=== PATIENT | male | born 1985 | race Caucasian/White ===

== ENCOUNTER 2022-07-28 11:02 | Inpatient (IN) | payer BC, OTHER ==
[2022-07-28] MEDS ORDERED: KETOROLAC TROMETHAMINE 15 MG/ML VIAL IVPUSH ONE (11:39)
[2022-07-28] MEDS ORDERED: ACETAMINOPHEN 1000 MG/100 ML BAG IVPB ONE (11:40)
[2022-07-28] MEDS ORDERED: SODIUM CHLORIDE 0.9% 500 ML INFUS.BAG IV ONE (11:40)
[2022-07-28] MEDS ORDERED: PANTOPRAZOLE SODIUM 40 MG VIAL IVPUSH ONE (11:40)
[2022-07-28] MEDS ORDERED: PANTOPRAZOLE SODIUM 40 MG VIAL ONE (12:11)
[2022-07-28] MEDS ORDERED: KETOROLAC TROMETHAMINE 15 MG/ML VIAL ONE (12:11)
[2022-07-28] MEDS ORDERED: ACETAMINOPHEN INJECTION 100 ML IVPB ONE ×2 (12:11→17:05)
[2022-07-28 12:45] LABS: BASO % 0.2 % (0-2.0); EOS % 0.1 % (0-4.5); HEMATOCRIT 45.1 % (35.4-49); LYMPH % 4.9 % (8-40); MCH 28.7 pg (25.7-33.7); MCHC 33.3 g/dl (32.0-35.9); MEAN CELL VOLUME 86.1 fl (80-96); MEAN PLT VOLUME 8.1 fl (7.5-11.1); MONO % 4.9 % (3.8-10.2); NEUT % 89.9 % (42.8-82.8); PLATELET COUNT 213 10^3/uL (134-434); RBC 5.24 M/mm3 (4.00-5.60); RDW 13.5 % (11.9-15.9)
[2022-07-28 12:49] LABS: EPI CELLS 7 /uL (0-25.1); HYALINE CASTS 4 /uL (0-3.1); PH,URINE 5.5 (5.0-8.0); URINE APPEARANCE CLEAR; URINE BACTERIA 6 /uL (0-1359); URINE BILIRUBIN 1+ (NEGATIVE); URINE COLOR ORANGE; URINE GLUCOSE (UA) NEGATIVE (NEGATIVE); URINE KETONE TRACE (NEGATIVE); URINE LEUK ESTERASE TRACE (NEGATIVE); URINE NITRITE NEGATIVE (NEGATIVE); URINE PROTEIN 1+ (NEGATIVE); URINE RBC 16 /uL (0-23.9); URINE WBC 13 /uL (0-25.8)
[2022-07-28 12:53] LABS: INR 1.46 (0.83-1.09); PROTHROMBIN TIME (PATIENT) 16.8 SEC (9.7-13.0)
[2022-07-28 13:09] LABS: CALCIUM 9.1 mg/dL (8.5-10.1)
[2022-07-28 13:10] LABS: ALBUMIN 3.6 g/dl (3.4-5.0); BLOOD UREA NITROGEN 11.5 mg/dL (7-18)
[2022-07-28 13:13] LABS: CREATININE 1.1 mg/dL (0.55-1.3)
[2022-07-28 13:14] LABS: BILIRUBIN,TOTAL 1.5 mg/dL (0.2-1); TOT PROT 7.9 g/dl (6.4-8.2)
[2022-07-28] MEDS ORDERED: PIPERACILLIN/TAZOB 4.5 GM 4.5 GM in DEXTROSE 5%-WATER 100 ML IVPB ONE (14:40)
[2022-07-28] MEDS ORDERED: PIPERACILLIN/TAZOB 4.5 GM 4.5 GM/100 ML BAG IVPB ONE (14:48)
[2022-07-28] MEDS ORDERED: DOCUSATE NA 100 MG/10 ML UNIT-DOSE CUPS PO PRN (15:40)
[2022-07-28] MEDS: ACETAMINOPHEN 1000 MG/100 ML BAG IVPB SCH ×2 (17:07→21:20)
[2022-07-28 21:12] LABS: BASO % 0.2 % (0-2.0); EOS % 0.1 % (0-4.5); HEMATOCRIT 44.3 % (35.4-49); HEMOGLOBIN 14.9 GM/dL (11.7-16.9); LYMPH % 8.7 % (8-40); MCH 29.3 pg (25.7-33.7); MCHC 33.5 g/dl (32.0-35.9); MEAN CELL VOLUME 87.3 fl (80-96); MEAN PLT VOLUME 8.7 fl (7.5-11.1); MONO % 3.3 % (3.8-10.2); NEUT % 87.7 % (42.8-82.8); PLATELET COUNT 180 10^3/uL (134-434); RBC 5.08 M/mm3 (4.00-5.60); RDW 13.8 % (11.9-15.9); WHITE BLOOD COUNT 14.8 K/mm3 (4.0-10.0)
[2022-07-28 21:18] LABS: BLOOD UREA NITROGEN 10.3 mg/dL (7-18)
[2022-07-28] MEDS: KETOROLAC TROMETHAMINE 30 MG/1 ML VIAL IVPUSH PRN (21:26)
[2022-07-28 23:24] LABS: ERYTHROCYTE SEDIMENTATION RATE 23 mm/hr (0-10)
[2022-07-29 02:22] VITALS: BMI 26.6
[2022-07-29] MEDS: KETOROLAC TROMETHAMINE 30 MG/1 ML VIAL IVPUSH PRN ×2 (03:33→09:39)
[2022-07-29] MEDS: ACETAMINOPHEN 1000 MG/100 ML BAG IVPB SCH ×4 (03:39→22:05)
[2022-07-29] MEDS: DEXTROSE 5%-NORMAL SALINE 1,000 ML IV SCH ×2 (05:36→22:49)
[2022-07-29 09:59] LABS: HEMOGLOBIN 14.2 GM/dL (11.7-16.9); MCH 29.4 pg (25.7-33.7); MCHC 33.8 g/dl (32.0-35.9); MEAN CELL VOLUME 86.7 fl (80-96); MEAN PLT VOLUME 8.5 fl (7.5-11.1); PLATELET COUNT 168 10^3/uL (134-434); RBC 4.85 M/mm3 (4.00-5.60); RDW 13.6 % (11.9-15.9); WHITE BLOOD COUNT 16.9 K/mm3 (4.0-10.0)
[2022-07-29] MEDS ORDERED: PIPERACILLIN/TAZOB 3.375 GM 3.375 GM in DEXTROSE 5%-WATER - 50 ML IVPB SCH (10:00)
[2022-07-29 10:11] LABS: ALBUMIN 3.2 g/dl (3.4-5.0)
[2022-07-29 10:12] LABS: BLOOD UREA NITROGEN 11.4 mg/dL (7-18)
[2022-07-29 10:15] LABS: CREATININE 1.1 mg/dL (0.55-1.3)
[2022-07-29 10:16] LABS: BILIRUBIN,TOTAL 1.1 mg/dL (0.2-1); TOT PROT 7.1 g/dl (6.4-8.2)
[2022-07-29] MEDS: PANTOPRAZOLE SODIUM 40 MG VIAL IVPUSH SCH (10:36)
[2022-07-29] MEDS: PIPERACILLIN/TAZOB 3.375 GM 3.375 GM in DEXTROSE 5%-WATER - 50 ML IVPB SCH (17:40)
[2022-07-29] MEDS ORDERED: ACETAMINOPHEN 325 MG TABLET (FP) PO ONE (18:06)
[2022-07-30] MEDS: ACETAMINOPHEN 325 MG TABLET (FP) PO PRN ×3 (01:12→15:18)
[2022-07-30] MEDS: PIPERACILLIN/TAZOB 3.375 GM 3.375 GM in DEXTROSE 5%-WATER - 50 ML IVPB SCH ×3 (03:21→18:22)
[2022-07-30] MEDS: DEXTROSE 5%-NORMAL SALINE 1,000 ML IV SCH (05:59)
[2022-07-30] MEDS: PANTOPRAZOLE SODIUM 40 MG VIAL IVPUSH SCH (10:41)
[2022-07-30 12:48] LABS: BASO % 0.2 % (0-2.0); EOS % 0.2 % (0-4.5); HEMATOCRIT 39.6 % (35.4-49); HEMOGLOBIN 13.3 GM/dL (11.7-16.9); LYMPH % 4.5 % (8-40); MCH 29.5 pg (25.7-33.7); MCHC 33.7 g/dl (32.0-35.9); MEAN CELL VOLUME 87.5 fl (80-96); MEAN PLT VOLUME 8.3 fl (7.5-11.1); MONO % 5.2 % (3.8-10.2); NEUT % 89.9 % (42.8-82.8); PLATELET COUNT 219 10^3/uL (134-434); RBC 4.52 M/mm3 (4.00-5.60); RDW 13.7 % (11.9-15.9)
[2022-07-30 13:09] LABS: CALCIUM 8.7 mg/dL (8.5-10.1)
[2022-07-30 13:13] LABS: CREATININE 1.1 mg/dL (0.55-1.3)
[2022-07-31] MEDS: DEXTROSE 5%-NORMAL SALINE 1,000 ML IV SCH ×2 (01:00→09:51)
[2022-07-31] MEDS: PIPERACILLIN/TAZOB 3.375 GM 3.375 GM in DEXTROSE 5%-WATER - 50 ML IVPB SCH ×3 (02:55→17:31)
[2022-07-31] MEDS: PANTOPRAZOLE SODIUM 40 MG VIAL IVPUSH SCH (09:35)
[2022-07-31 11:56] LABS: HEMATOCRIT 40.3 % (35.4-49); HEMOGLOBIN 13.4 GM/dL (11.7-16.9); MCH 28.7 pg (25.7-33.7); MCHC 33.2 g/dl (32.0-35.9); MEAN CELL VOLUME 86.5 fl (80-96); MEAN PLT VOLUME 7.9 fl (7.5-11.1); PLATELET COUNT 255 10^3/uL (134-434); RBC 4.66 M/mm3 (4.00-5.60); RDW 13.9 % (11.9-15.9); WHITE BLOOD COUNT 13.7 K/mm3 (4.0-10.0)
[2022-07-31 12:12] LABS: CALCIUM 8.8 mg/dL (8.5-10.1)
[2022-07-31 12:13] LABS: ALBUMIN 2.6 g/dl (3.4-5.0); BLOOD UREA NITROGEN 11.5 mg/dL (7-18); MAGNESIUM 2.3 mg/dL (1.8-2.4)
[2022-07-31 12:16] LABS: CREATININE 1.1 mg/dL (0.55-1.3)
[2022-07-31 12:17] LABS: TOT PROT 6.8 g/dl (6.4-8.2)
[2022-07-31] MEDS ORDERED: DEXTROSE 5%-NORMAL SALINE 995 ML with POTASSIUM CHLORIDE 10 MEQ IV SCH (14:29)
[2022-07-31] MEDS ORDERED: POTASSIUM CHLORIDE 10 MEQ in DEXTROSE 5%-NORMAL SALINE 995 ML IV SCH (15:40)
[2022-07-31] MEDS: D5-1/2NS+20 MEQ KCL - 20 MEQ/1,000 ML INFUS.BAG IV SCH (17:30)
[2022-07-31] MEDS: KCL 10 MEQ IVPB 10 MEQ/100 ML INFUS.BAG IVPB SCH ×3 (20:32→23:25)
[2022-08-01] MEDS: PIPERACILLIN/TAZOB 3.375 GM 3.375 GM in DEXTROSE 5%-WATER - 50 ML IVPB SCH ×3 (03:05→17:31)
[2022-08-01] MEDS: PANTOPRAZOLE SODIUM 40 MG VIAL IVPUSH SCH (09:16)
[2022-08-01] MEDS: D5-1/2NS+20 MEQ KCL - 20 MEQ/1,000 ML INFUS.BAG IV SCH ×3 (09:17→21:37)
[2022-08-01 09:30] LABS: HEMOGLOBIN 13.3 GM/dL (11.7-16.9); MCH 28.4 pg (25.7-33.7); MCHC 32.6 g/dl (32.0-35.9); MEAN CELL VOLUME 87.4 fl (80-96); MEAN PLT VOLUME 7.9 fl (7.5-11.1); PLATELET COUNT 271 10^3/uL (134-434); RBC 4.69 M/mm3 (4.00-5.60); RDW 13.9 % (11.9-15.9); WHITE BLOOD COUNT 11.5 K/mm3 (4.0-10.0)
[2022-08-01 10:02] LABS: ALBUMIN 2.4 g/dl (3.4-5.0); BLOOD UREA NITROGEN 11.7 mg/dL (7-18); CALCIUM 8.6 mg/dL (8.5-10.1); MAGNESIUM 2.3 mg/dL (1.8-2.4)
[2022-08-01 10:05] LABS: PHOSPHOROUS 3.1 mg/dL (2.5-4.9)
[2022-08-01 10:07] LABS: BILIRUBIN,TOTAL 0.6 mg/dL (0.2-1); TOT PROT 6.5 g/dl (6.4-8.2)
[2022-08-01 10:15] LABS: ERYTHROCYTE SEDIMENTATION RATE 78 mm/hr (0-10)
[2022-08-01] MEDS ORDERED: ACETAMINOPHEN 1000 MG/100 ML BAG IVPB ONE (21:24)
[2022-08-01] MEDS: ACETAMINOPHEN 325 MG TABLET (FP) PO PRN (23:02)
[2022-08-02] MEDS: PIPERACILLIN/TAZOB 3.375 GM 3.375 GM in DEXTROSE 5%-WATER - 50 ML IVPB SCH ×2 (01:33→10:09)
[2022-08-02 09:51] LABS: BASO % 0.3 % (0-2.0); EOS % 3.3 % (0-4.5); HEMATOCRIT 39.7 % (35.4-49); HEMOGLOBIN 13.5 GM/dL (11.7-16.9); LYMPH % 8.2 % (8-40); MCH 29.6 pg (25.7-33.7); MCHC 34.1 g/dl (32.0-35.9); MEAN CELL VOLUME 86.7 fl (80-96); MEAN PLT VOLUME 7.3 fl (7.5-11.1); MONO % 6.8 % (3.8-10.2); NEUT % 81.4 % (42.8-82.8); PLATELET COUNT 307 10^3/uL (134-434); RBC 4.57 M/mm3 (4.00-5.60); RDW 14.3 % (11.9-15.9); WHITE BLOOD COUNT 11.7 K/mm3 (4.0-10.0)
[2022-08-02] MEDS: PANTOPRAZOLE SODIUM 40 MG VIAL IVPUSH SCH (10:09)
[2022-08-02 10:13] LABS: CALCIUM 8.7 mg/dL (8.5-10.1)
[2022-08-02 10:14] LABS: ALBUMIN 2.4 g/dl (3.4-5.0); BLOOD UREA NITROGEN 11.2 mg/dL (7-18)
[2022-08-02 10:16] LABS: BILIRUBIN,TOTAL 0.7 mg/dL (0.2-1); CREATININE 0.9 mg/dL (0.55-1.3)
[2022-08-02 10:17] LABS: TOT PROT 6.7 g/dl (6.4-8.2)
[2022-08-02] MEDS: D5-1/2NS+20 MEQ KCL - 20 MEQ/1,000 ML INFUS.BAG IV SCH ×2 (13:57→18:44)
[2022-08-02] MEDS: ACETAMINOPHEN 325 MG TABLET (FP) PO PRN (14:03)
[2022-08-02] MEDS: PIPERACILLIN/TAZOB 4.5 GM 4.5 GM in DEXTROSE 5%-WATER 100 ML IVPB SCH (17:23)
[2022-08-03] MEDS: D5-1/2NS+20 MEQ KCL - 20 MEQ/1,000 ML INFUS.BAG IV SCH ×2 (01:37→18:03)
[2022-08-03] MEDS: PIPERACILLIN/TAZOB 4.5 GM 4.5 GM in DEXTROSE 5%-WATER 100 ML IVPB SCH ×3 (01:38→18:04)
[2022-08-03] MEDS: PANTOPRAZOLE SODIUM 40 MG VIAL IVPUSH SCH (10:57)
[2022-08-03 11:16] LABS: BASO % 0.3 % (0-2.0); EOS % 2.4 % (0-4.5); HEMOGLOBIN 13.2 GM/dL (11.7-16.9); LYMPH % 6.5 % (8-40); MCH 29.3 pg (25.7-33.7); MCHC 33.9 g/dl (32.0-35.9); MEAN CELL VOLUME 86.3 fl (80-96); MEAN PLT VOLUME 7.1 fl (7.5-11.1); MONO % 6.5 % (3.8-10.2); NEUT % 84.3 % (42.8-82.8); PLATELET COUNT 332 10^3/uL (134-434); RBC 4.52 M/mm3 (4.00-5.60); RDW 13.9 % (11.9-15.9); WHITE BLOOD COUNT 12.7 K/mm3 (4.0-10.0)
[2022-08-03 11:45] LABS: CALCIUM 8.3 mg/dL (8.5-10.1)
[2022-08-03 11:46] LABS: ALBUMIN 2.4 g/dl (3.4-5.0); BLOOD UREA NITROGEN 8.1 mg/dL (7-18)
[2022-08-03 11:50] LABS: BILIRUBIN,TOTAL 0.9 mg/dL (0.2-1); CREATININE 0.8 mg/dL (0.55-1.3)
[2022-08-03 11:51] LABS: TOT PROT 6.4 g/dl (6.4-8.2)
[2022-08-03 11:55] LABS: ERYTHROCYTE SEDIMENTATION RATE 62 mm/hr (0-10)
[2022-08-04] MEDS: PIPERACILLIN/TAZOB 4.5 GM 4.5 GM in DEXTROSE 5%-WATER 100 ML IVPB SCH ×3 (00:59→17:20)
[2022-08-04] MEDS: PANTOPRAZOLE SODIUM 40 MG VIAL IVPUSH SCH (11:08)
[2022-08-04 17:37] LABS: BASO % 0.3 % (0-2.0); EOS % 2.7 % (0-4.5); HEMATOCRIT 39.1 % (35.4-49); HEMOGLOBIN 12.8 GM/dL (11.7-16.9); MCH 28.2 pg (25.7-33.7); MCHC 32.8 g/dl (32.0-35.9); MEAN CELL VOLUME 86.1 fl (80-96); MEAN PLT VOLUME 7.1 fl (7.5-11.1); MONO % 6.7 % (3.8-10.2); NEUT % 83.3 % (42.8-82.8); PLATELET COUNT 396 10^3/uL (134-434); RBC 4.54 M/mm3 (4.00-5.60); RDW 13.7 % (11.9-15.9); WHITE BLOOD COUNT 11.5 K/mm3 (4.0-10.0)
[2022-08-05] MEDS: PIPERACILLIN/TAZOB 4.5 GM 4.5 GM in DEXTROSE 5%-WATER 100 ML IVPB SCH ×3 (01:06→17:57)
[2022-08-05 09:25] LABS: HEMATOCRIT 39.1 % (35.4-49); HEMOGLOBIN 13.2 GM/dL (11.7-16.9); MCH 29.3 pg (25.7-33.7); MCHC 33.7 g/dl (32.0-35.9); MEAN CELL VOLUME 86.9 fl (80-96); MEAN PLT VOLUME 6.7 fl (7.5-11.1); PLATELET COUNT 426 10^3/uL (134-434); WHITE BLOOD COUNT 14.1 K/mm3 (4.0-10.0)
[2022-08-05 09:54] LABS: CALCIUM 8.6 mg/dL (8.5-10.1)
[2022-08-05 09:55] LABS: ALBUMIN 2.5 g/dl (3.4-5.0); BLOOD UREA NITROGEN 8.5 mg/dL (7-18)
[2022-08-05 09:57] LABS: BILIRUBIN,TOTAL 0.5 mg/dL (0.2-1)
[2022-08-05 09:58] LABS: CREATININE 0.9 mg/dL (0.55-1.3)
[2022-08-05 10:00] LABS: TOT PROT 6.9 g/dl (6.4-8.2)
[2022-08-05] MEDS: PANTOPRAZOLE SODIUM 40 MG VIAL IVPUSH SCH (11:58)
[2022-08-05] MEDS: DEXTROSE 5%-0.45% SALINE 995 ML with POTASSIUM CHLORIDE 10 MEQ IV SCH (15:25)
[2022-08-06] MEDS: PIPERACILLIN/TAZOB 4.5 GM 4.5 GM in DEXTROSE 5%-WATER 100 ML IVPB SCH ×2 (01:42→13:45)
[2022-08-06] MEDS ORDERED: MIDAZOLAM HCL 2 MG/2 ML SINGLE DOSE VIAL ONE (08:49)
[2022-08-06] MEDS ORDERED: SODIUM CHLORIDE 500 ML IV ONE (09:55)
[2022-08-06] MEDS ORDERED: MIDAZOLAM HCL 2 MG/2 ML SINGLE DOSE VIAL IVPUSH ONE ×2 (09:56→10:11)
[2022-08-06 12:01] LABS: BASO % 0.2 % (0-2.0); EOS % 1.5 % (0-4.5); HEMATOCRIT 38.3 % (35.4-49); HEMOGLOBIN 12.8 GM/dL (11.7-16.9); LYMPH % 6.2 % (8-40); MCH 28.6 pg (25.7-33.7); MCHC 33.3 g/dl (32.0-35.9); MEAN CELL VOLUME 85.8 fl (80-96); MEAN PLT VOLUME 7.2 fl (7.5-11.1); MONO % 4.7 % (3.8-10.2); NEUT % 87.4 % (42.8-82.8); PLATELET COUNT 466 10^3/uL (134-434); RBC 4.46 M/mm3 (4.00-5.60); RDW 13.9 % (11.9-15.9); WHITE BLOOD COUNT 15.8 K/mm3 (4.0-10.0)
[2022-08-06 12:18] LABS: CALCIUM 8.2 mg/dL (8.5-10.1)
[2022-08-06 12:19] LABS: ALBUMIN 2.4 g/dl (3.4-5.0); BLOOD UREA NITROGEN 8.1 mg/dL (7-18)
[2022-08-06 12:21] LABS: CREATININE 0.8 mg/dL (0.55-1.3)
[2022-08-06 12:23] LABS: BILIRUBIN,TOTAL 0.6 mg/dL (0.2-1); TOT PROT 6.9 g/dl (6.4-8.2)
[2022-08-06] MEDS: PANTOPRAZOLE SODIUM 40 MG VIAL IVPUSH SCH (13:46)
[2022-08-06 15:38] VITALS: RESP 18
[2022-08-06] MEDS: DEXTROSE 5%-0.45% SALINE 995 ML with POTASSIUM CHLORIDE 10 MEQ IV SCH (16:39)
[2022-08-06] MEDS: AMOX TR/POT CLAV 500MG/125MG TABLETS (FP) PO SCH (17:49)
[2022-08-06] MEDS ORDERED: traMADol HCL 50 MG TABLET PO PRN (20:05)
[2022-08-06] MEDS: metroNIDAZOLE 250 MG TABLET PO SCH (21:19)
[2022-08-07] MEDS: metroNIDAZOLE 250 MG TABLET PO SCH ×3 (05:41→21:05)
[2022-08-07] MEDS: AMOX TR/POT CLAV 500MG/125MG TABLETS (FP) PO SCH ×2 (10:14→16:46)
[2022-08-07 12:31] LABS: BASO % 0.3 % (0-2.0); EOS % 2.1 % (0-4.5); HEMATOCRIT 41.6 % (35.4-49); HEMOGLOBIN 14.2 GM/dL (11.7-16.9); MCH 29.4 pg (25.7-33.7); MCHC 34.1 g/dl (32.0-35.9); MEAN CELL VOLUME 86.2 fl (80-96); MEAN PLT VOLUME 6.9 fl (7.5-11.1); MONO % 4.9 % (3.8-10.2); NEUT % 81.7 % (42.8-82.8); PLATELET COUNT 559 10^3/uL (134-434); RBC 4.83 M/mm3 (4.00-5.60); RDW 13.6 % (11.9-15.9); WHITE BLOOD COUNT 13.2 K/mm3 (4.0-10.0)
[2022-08-07 13:03] LABS: BLOOD UREA NITROGEN 10.7 mg/dL (7-18)
[2022-08-07 13:05] LABS: CREATININE 0.9 mg/dL (0.55-1.3)
[2022-08-07 13:07] LABS: BILIRUBIN,TOTAL 0.4 mg/dL (0.2-1); TOT PROT 8.4 g/dl (6.4-8.2)
[2022-08-07 13:15] LABS: ALBUMIN 2.9 g/dl (3.4-5.0)
[2022-08-08] MEDS: metroNIDAZOLE 250 MG TABLET PO SCH ×2 (05:21→15:21)
[2022-08-08] MEDS: AMOX TR/POT CLAV 500MG/125MG TABLETS (FP) PO SCH (09:42)
[2022-08-08 10:24] VITALS: BP 113/76; PULSE 80; TEMP 98.5
[2022-08-08 12:42] LABS: HEMATOCRIT 40.4 % (35.4-49); HEMOGLOBIN 13.7 GM/dL (11.7-16.9); MCH 29.5 pg (25.7-33.7); MEAN CELL VOLUME 86.7 fl (80-96); MEAN PLT VOLUME 6.6 fl (7.5-11.1); PLATELET COUNT 502 10^3/uL (134-434); RBC 4.65 M/mm3 (4.00-5.60); RDW 13.9 % (11.9-15.9); WHITE BLOOD COUNT 11.2 K/mm3 (4.0-10.0)
[2022-08-08 13:09] LABS: ALBUMIN 2.7 g/dl (3.4-5.0); BLOOD UREA NITROGEN 10.2 mg/dL (7-18); CALCIUM 8.7 mg/dL (8.5-10.1); MAGNESIUM 2.4 mg/dL (1.8-2.4)
[2022-08-08 13:13] LABS: CREATININE 0.8 mg/dL (0.55-1.3)
[2022-08-08 13:15] LABS: BILIRUBIN,TOTAL 0.5 mg/dL (0.2-1); TOT PROT 7.9 g/dl (6.4-8.2)
== END 2022-08-08 17:30 | disposition home or self-care (01) | DRG 392 ==
LOC: JER 11:02 → JERBED 14:47 → UNDOADMOB 14:47 → JERBED 18:44 → J5S 18:44 → JERBED 07-30 07:07 → OBSVTOIN 07-30 07:07 → INTOOBSV 07-30 07:07 → J5S 08-07 05:15
PROVIDERS: ADMIT Family Medicine; ATTEND Family Medicine
PROC: 0W9G3ZZ Drainage of Peritoneal Cavity, Percutaneous Approach (ICD-10-PCS; principal; 2022-08-06)
DX: K57.20 Diverticulitis of large intestine with perforation and abscess without bleeding (principal); R50.9 Fever, unspecified; D72.829 Elevated white blood cell count, unspecified; E87.6 Hypokalemia
CPT/HCPCS: 0241U-QW; 36415; 49406; 71046-TC-FY; 74018-TC-FY; 74176-TC; 74177-TC; 80048; 80053; 81003; 83690; 83735; 84100; 85025; 85027; 85610; 85651; 86140; 86850; 86900; 86901; 87070; 87075; 87102; 87116; 87186; 87205; 87206; 87210; 93005; 93010; 99285-25; Q9967

== ENCOUNTER 2022-08-27 15:15 | Inpatient (IN) | payer BC ==
[2022-08-27] MEDS ORDERED: SODIUM CHLORIDE 1,000 ML IV STA (17:11)
[2022-08-27] MEDS ORDERED: ONDANSETRON 4 MG/2 ML VIAL IVPUSH ONE (17:11)
[2022-08-27] MEDS ORDERED: morphine CARPU-JECT 4 MG/1 ML DISP.SYRIN IVPUSH ONE (17:11)
[2022-08-27] MEDS ORDERED: ONDANSETRON 4 MG/2 ML VIAL ONE (18:45)
[2022-08-27] MEDS ORDERED: morphine SULFATE 4 MG/ML VIAL ONE (18:45)
[2022-08-27 19:03] LABS: BASO % 0.1 % (0-2.0); HEMATOCRIT 38.6 % (35.4-49); HEMOGLOBIN 12.9 GM/dL (11.7-16.9); MCH 28.4 pg (25.7-33.7); MCHC 33.6 g/dl (32.0-35.9); MEAN CELL VOLUME 84.5 fl (80-96); MEAN PLT VOLUME 7.3 fl (7.5-11.1); MONO % 8.5 % (3.8-10.2); NEUT % 84.4 % (42.8-82.8); PLATELET COUNT 264 10^3/uL (134-434); RBC 4.57 M/mm3 (4.00-5.60); RDW 13.6 % (11.9-15.9)
[2022-08-27 19:16] LABS: EPI CELLS 11 /uL (0-25.1); HYALINE CASTS 8 /uL (0-3.1); PH,URINE 5.5 (5.0-8.0); URINE APPEARANCE CLOUDY; URINE BACTERIA 4 /uL (0-1359); URINE BILIRUBIN 1+ (NEGATIVE); URINE COLOR ORANGE; URINE GLUCOSE (UA) NEGATIVE (NEGATIVE); URINE KETONE 1+ (NEGATIVE); URINE LEUK ESTERASE TRACE (NEGATIVE); URINE NITRITE NEGATIVE (NEGATIVE); URINE PROTEIN 2+ (NEGATIVE); URINE RBC 7 /uL (0-23.9); URINE WBC 13 /uL (0-25.8)
[2022-08-27 19:25] LABS: CALCIUM 9.3 mg/dL (8.5-10.1)
[2022-08-27 19:29] LABS: CREATININE 0.9 mg/dL (0.55-1.3)
[2022-08-27 19:31] LABS: BILIRUBIN,TOTAL 1.3 mg/dL (0.2-1); TOT PROT 8.2 g/dl (6.4-8.2)
[2022-08-27] MEDS ORDERED: PIPERACILLIN/TAZOB 4.5 GM 4.5 GM in DEXTROSE 5%-WATER 100 ML IVPB ONE (21:57)
[2022-08-27] MEDS ORDERED: PIPERACILLIN/TAZOB 4.5 GM 4.5 GM/100 ML BAG IVPB ONE (22:08)
[2022-08-27] MEDS ORDERED: SODIUM CHLORIDE 0.9% 500 ML INFUS.BAG IV ONE (23:20)
[2022-08-28 00:13] LABS: INR 1.39 (0.83-1.09)
[2022-08-28] MEDS ORDERED: ACETAMINOPHEN 1000 MG/100 ML BAG IVPB PRN ×2 (00:13→05:15)
[2022-08-28] MEDS ORDERED: DEXTROSE 5%-NORMAL SALINE 1,000 ML IV SCH (00:15)
[2022-08-28] MEDS ORDERED: INDOCYANINE GREEN 25 MG/10 ML VIAL IVPUSH ONE (00:59)
[2022-08-28] MEDS ORDERED: BUPIVACAINE HCL/PF 0.25% (2.5MG/ML) 10 ML VIAL ONE (00:59)
[2022-08-28] MEDS ORDERED: ONDANSETRON 4 MG/2 ML VIAL IVPUSH PRN ×4 (01:00→05:15)
[2022-08-28] MEDS ORDERED: PROPOFOL 40 ML ONE (01:09)
[2022-08-28] MEDS ORDERED: HYDROmorphone HCl 2 MG/ML VIAL ONE (01:09)
[2022-08-28] MEDS ORDERED: ROCURONIUM BROMIDE 50 MG/5 ML SYRINGE ONE (01:10)
[2022-08-28] MEDS ORDERED: MIDAZOLAM HCL 2 MG/2 ML SINGLE DOSE VIAL ONE (01:11)
[2022-08-28] MEDS ORDERED: LACTATED RINGERS SOLUTION 1,000 ML IV SCH (01:15)
[2022-08-28] MEDS ORDERED: PIPERACILLIN/TAZOB 4.5 GM 4.5 GM in DEXTROSE 5%-WATER 100 ML IVPB SCH ×2 (02:00→03:30)
[2022-08-28] MEDS ORDERED: NEOSTIGMINE METHYLSULFATE 0.5 MG/ML - 10 ML MDV ONE (04:22)
[2022-08-28] MEDS ORDERED: HYDROmorphone *PCA* 10MG/50ML DISP.SYRIN PCA SCH (05:45)
[2022-08-28] MEDS ORDERED: KETOROLAC TROMETHAMINE 30 MG/1 ML VIAL ONE (05:59)
[2022-08-28] MEDS ORDERED: KETOROLAC TROMETHAMINE 15 MG/ML VIAL IVPUSH ONE (06:00)
[2022-08-28 07:26] LABS: HEMATOCRIT 39.2 % (35.4-49); HEMOGLOBIN 12.6 GM/dL (11.7-16.9); MCH 27.8 pg (25.7-33.7); MCHC 32.2 g/dl (32.0-35.9); MEAN CELL VOLUME 86.4 fl (80-96); MEAN PLT VOLUME 7.8 fl (7.5-11.1); PLATELET COUNT 280 10^3/uL (134-434); RBC 4.54 M/mm3 (4.00-5.60); RDW 13.6 % (11.9-15.9); WHITE BLOOD COUNT 11.9 K/mm3 (4.0-10.0)
[2022-08-28 07:49] LABS: BLOOD UREA NITROGEN 8.7 mg/dL (7-18)
[2022-08-28 07:50] LABS: MAGNESIUM 1.9 mg/dL (1.8-2.4)
[2022-08-28 07:52] LABS: CREATININE 0.7 mg/dL (0.55-1.3); PHOSPHOROUS 2.8 mg/dL (2.5-4.9)
[2022-08-28 07:54] LABS: BILIRUBIN,TOTAL 1.6 mg/dL (0.2-1)
[2022-08-28 08:31] LABS: ALBUMIN 2.1 g/dl (3.4-5.0); CALCIUM 7.7 mg/dL (8.5-10.1); TOT PROT 5.9 g/dl (6.4-8.2)
[2022-08-28] MEDS: KETOROLAC TROMETHAMINE 15 MG/ML VIAL IVPUSH SCH ×3 (08:48→18:33)
[2022-08-28 09:18] VITALS: BMI 24.7
[2022-08-28 09:26] LABS: ANISOCYTOSIS 0; HELMET CELLS 0; HOWELL-JOLLY BODIES 0; MACROCYTOSIS 0; OVALOCYTE 0; ROULEAU 0; SICKELED CELLS 0; TARGET CELLS 0; TEAR DROP CELLS 0; TOXIC GRANULATION 0
[2022-08-28] MEDS ORDERED: PIPERACILLIN/TAZOB 3.375 GM 3.375 GM in DEXTROSE 5%-WATER - 50 ML IVPB SCH (10:00)
[2022-08-28] MEDS: ENOXAPARIN NA (PORCINE) 40 MG/0.4 ML DISP.SYRIN SQ SCH (10:46)
[2022-08-28] MEDS ORDERED: SODIUM CHLORIDE 500 ML IV STA (14:28)
[2022-08-28] MEDS: SODIUM CHLORIDE 1,000 ML IV SCH ×2 (15:27→22:41)
[2022-08-28] MEDS: ACETAMINOPHEN 1000 MG/100 ML BAG IVPB SCH ×2 (15:54→21:09)
[2022-08-28] MEDS: PIPERACILLIN/TAZOB 4.5 GM 4.5 GM in DEXTROSE 5%-WATER 100 ML IVPB SCH (18:34)
[2022-08-29] MEDS: KETOROLAC TROMETHAMINE 15 MG/ML VIAL IVPUSH SCH ×4 (00:14→17:47)
[2022-08-29] MEDS: PIPERACILLIN/TAZOB 4.5 GM 4.5 GM in DEXTROSE 5%-WATER 100 ML IVPB SCH ×2 (02:52→10:28)
[2022-08-29] MEDS: ACETAMINOPHEN 1000 MG/100 ML BAG IVPB SCH ×2 (04:46→11:15)
[2022-08-29] MEDS: SODIUM CHLORIDE 1,000 ML IV SCH ×3 (06:23→15:50)
[2022-08-29 10:22] LABS: BASO % 0.2 % (0-2.0); HEMATOCRIT 30.9 % (35.4-49); HEMOGLOBIN 10.2 GM/dL (11.7-16.9); LYMPH % 7.2 % (8-40); MCH 28.1 pg (25.7-33.7); MCHC 32.8 g/dl (32.0-35.9); MEAN CELL VOLUME 85.6 fl (80-96); MEAN PLT VOLUME 7.9 fl (7.5-11.1); MONO % 9.1 % (3.8-10.2); NEUT % 83.5 % (42.8-82.8); PLATELET COUNT 236 10^3/uL (134-434); RBC 3.61 M/mm3 (4.00-5.60); RDW 14.1 % (11.9-15.9); WHITE BLOOD COUNT 9.3 K/mm3 (4.0-10.0)
[2022-08-29] MEDS: ENOXAPARIN NA (PORCINE) 40 MG/0.4 ML DISP.SYRIN SQ SCH (10:26)
[2022-08-29 10:45] LABS: BLOOD UREA NITROGEN 7.9 mg/dL (7-18); CALCIUM 7.9 mg/dL (8.5-10.1); MAGNESIUM 2.3 mg/dL (1.8-2.4)
[2022-08-29 10:49] LABS: BILIRUBIN,TOTAL 1.5 mg/dL (0.2-1); CREATININE 0.6 mg/dL (0.55-1.3); PHOSPHOROUS 2.6 mg/dL (2.5-4.9); TOT PROT 5.2 g/dl (6.4-8.2)
[2022-08-29 11:08] LABS: ALBUMIN 1.6 g/dl (3.4-5.0)
[2022-08-29] MEDS: MEROPENEM 1 GM in DEXTROSE 5%-WATER 100 ML IVPB SCH ×2 (16:34→22:03)
[2022-08-30] MEDS: KETOROLAC TROMETHAMINE 15 MG/ML VIAL IVPUSH SCH ×5 (00:25→22:30)
[2022-08-30] MEDS: MEROPENEM 1 GM in DEXTROSE 5%-WATER 100 ML IVPB SCH ×3 (02:18→17:28)
[2022-08-30] MEDS: ENOXAPARIN NA (PORCINE) 40 MG/0.4 ML DISP.SYRIN SQ SCH (09:23)
[2022-08-30 09:57] LABS: ALBUMIN 1.5 g/dl (3.4-5.0); BLOOD UREA NITROGEN 8.1 mg/dL (7-18); CALCIUM 7.8 mg/dL (8.5-10.1)
[2022-08-30 10:01] LABS: CREATININE 0.5 mg/dL (0.55-1.3)
[2022-08-30 10:02] LABS: BILIRUBIN,TOTAL 0.8 mg/dL (0.2-1); TOT PROT 5.2 g/dl (6.4-8.2)
[2022-08-30] MEDS: SODIUM CHLORIDE 1,000 ML IV SCH (17:27)
[2022-08-31] MEDS: MEROPENEM 1 GM in DEXTROSE 5%-WATER 100 ML IVPB SCH ×3 (01:55→19:30)
[2022-08-31] MEDS: KETOROLAC TROMETHAMINE 15 MG/ML VIAL IVPUSH SCH ×5 (07:12→23:18)
[2022-08-31 10:14] LABS: HEMATOCRIT 28.8 % (35.4-49); HEMOGLOBIN 9.6 GM/dL (11.7-16.9); MCH 28.5 pg (25.7-33.7); MCHC 33.4 g/dl (32.0-35.9); MEAN CELL VOLUME 85.3 fl (80-96); MEAN PLT VOLUME 7.3 fl (7.5-11.1); PLATELET COUNT 336 10^3/uL (134-434); RBC 3.38 M/mm3 (4.00-5.60); WHITE BLOOD COUNT 9.4 K/mm3 (4.0-10.0)
[2022-08-31 10:36] LABS: ALBUMIN 1.6 g/dl (3.4-5.0); BLOOD UREA NITROGEN 9.4 mg/dL (7-18); CALCIUM 7.7 mg/dL (8.5-10.1); MAGNESIUM 2.2 mg/dL (1.8-2.4)
[2022-08-31 10:39] LABS: CREATININE 0.6 mg/dL (0.55-1.3)
[2022-08-31 10:40] LABS: BILIRUBIN,TOTAL 0.6 mg/dL (0.2-1); TOT PROT 5.4 g/dl (6.4-8.2)
[2022-08-31] MEDS: ENOXAPARIN NA (PORCINE) 40 MG/0.4 ML DISP.SYRIN SQ SCH (10:44)
[2022-08-31] MEDS ORDERED: LACTATED RINGERS SOLUTION 1,000 ML/1,000 ML INFUS.BAG IV SCH (13:45)
[2022-08-31] MEDS ORDERED: ALBUTEROL SO4 0.083% IH SOL 2.5 MG/3 ML VIAL.NEB. NEB ONE (17:41)
[2022-08-31] MEDS ORDERED: ALBUTEROL SO4 0.083% IH SOL 2.5 MG/3 ML VIAL.NEB. NEB PRN (17:41)
[2022-09-01] MEDS: MEROPENEM 1 GM in DEXTROSE 5%-WATER 100 ML IVPB SCH ×3 (01:52→17:24)
[2022-09-01] MEDS: ENOXAPARIN NA (PORCINE) 40 MG/0.4 ML DISP.SYRIN SQ SCH (09:44)
[2022-09-01] MEDS ORDERED: ACETAMINOPHEN 500 MG TABLET (FP) PO PRN (09:45)
[2022-09-01] MEDS ORDERED: LACTATED RINGERS SOLUTION 1,000 ML/1,000 ML INFUS.BAG IV SCH (16:30)
[2022-09-02] MEDS: MEROPENEM 1 GM in DEXTROSE 5%-WATER 100 ML IVPB SCH ×2 (01:00→10:27)
[2022-09-02 06:54] VITALS: RESP 18
[2022-09-02 10:10] LABS: BASO % 0.7 % (0-2.0); EOS % 1.3 % (0-4.5); HEMOGLOBIN 10.7 GM/dL (11.7-16.9); LYMPH % 13.3 % (8-40); MCH 28.4 pg (25.7-33.7); MCHC 33.5 g/dl (32.0-35.9); MEAN PLT VOLUME 7.5 fl (7.5-11.1); MONO % 6.1 % (3.8-10.2); NEUT % 78.6 % (42.8-82.8); PLATELET COUNT 412 10^3/uL (134-434); RBC 3.77 M/mm3 (4.00-5.60); RDW 14.2 % (11.9-15.9); WHITE BLOOD COUNT 10.4 K/mm3 (4.0-10.0)
[2022-09-02 10:27] LABS: BLOOD UREA NITROGEN 4.7 mg/dL (7-18)
[2022-09-02] MEDS: ENOXAPARIN NA (PORCINE) 40 MG/0.4 ML DISP.SYRIN SQ SCH (10:27)
[2022-09-02 10:28] LABS: ALBUMIN 1.9 g/dl (3.4-5.0); CALCIUM 8.2 mg/dL (8.5-10.1)
[2022-09-02 10:31] LABS: CREATININE 0.6 mg/dL (0.55-1.3)
[2022-09-02 10:33] LABS: BILIRUBIN,TOTAL 0.5 mg/dL (0.2-1); TOT PROT 6.2 g/dl (6.4-8.2)
[2022-09-02 14:36] VITALS: BP 139/84; PULSE 100; TEMP 98
== END 2022-09-02 13:58 | disposition home or self-care (01) | DRG 330 ==
LOC: JER 15:15 → JERBED 23:08 → OBSVTOIN 08-28 00:07 → J8W 08-28 06:50 → J5S 08-31 15:46
PROVIDERS: ADMIT Internal Medicine; ATTEND Family Medicine
PROC: 0DNW0ZZ Release Peritoneum, Open Approach (ICD-10-PCS; 2022-08-28)
PROC: 0DTN0ZZ Resection of Sigmoid Colon, Open Approach (ICD-10-PCS; principal; 2022-08-28 01:00)
PROC: 0W9F0ZZ Drainage of Abdominal Wall, Open Approach (ICD-10-PCS; 2022-08-28 01:00)
DX: K57.20 Diverticulitis of large intestine with perforation and abscess without bleeding (principal); E87.1 Hypo-osmolality and hyponatremia; L02.211 Cutaneous abscess of abdominal wall; K66.0 Peritoneal adhesions (postprocedural) (postinfection); D72.829 Elevated white blood cell count, unspecified
CPT/HCPCS: 36415; 71045-TC-FY; 71046-TC-FY; 74019-TC-FY; 74177-TC; 80053; 81003; 83690; 83735; 84100; 85025; 85027; 85610; 85730; 86140; 86850; 86900; 86901; 87040; 87086; 88307-TC; 94010; 94760; 97116-GP; 97161-GP; 99285-25; C9803-CS; G0378; Q9967; U0003; U0005